=== PATIENT | male | born 1960 | race Caucasian/White ===

== ENCOUNTER 2016-10-13 19:37 | Emergency (ER) | payer MEDICARE ==
[2016-10-13 19:38] VITALS: BMI 25.2
--- NOTE | 2016-10-13 20:09 | C.PDOC ---
History Of Present Illness 55 y/o male brought in by EMS presents to the ED with intoxication. Pt history of orthopedic issues and known substance abuse (pain meds and alcohol). Pt was found lying on the street and unsteady gait when standing up. Pt has no physical complaints at this time. Time Seen by Provider: 10/13/16 20:00 Chief Complaint (Nursing): Substance Abuse History Per: Patient History/Exam Limitations: no limitations Suicide/Self Injury Attempted (Context): None Modifying Factor(s): Alcohol Severity: Mild Involuntary Hold By: None Recent travel outside of the [place]: No Past Medical History Reviewed: Historical Data, Nursing Documentation, Vital Signs Vital Signs: Last Vital Signs Temp 97.8 F 10/13/16 19:48 Pulse 92 H 10/13/16 22:00 Resp 19 10/13/16 22:00 BP 116/67 10/13/16 22:00 Pulse Ox 100 10/13/16 23:44 - [facility] Procedures ANESTH INJECT-SPIN CANAL (08/27/02) IMMOBILIZATION OF LEFT UPPER ARM USING SPLINT (02/14/16) INJECT STEROID (08/27/02) INJECT/INFUSE ELECTROLYT (07/09/14) INJECT/INFUSE NEC (03/23/15) SPINAL CANAL INJECT NEC (08/27/02) TETANUS TOXOID ADMINIST (08/01/13) Family History: States: Unknown Family Hx - Social History Hx Alcohol Use: No Hx Substance Use: Yes (pain pills) - Immunization History Hx Tetanus Toxoid Vaccination: Yes Hx Influenza Vaccination: No Hx Pneumococcal Vaccination: No Review Of Systems Review Of Systems: ROS cannot be obtained secondary to pt's inabilty to answer questions. Physical Exam - Physical Exam Appears: Non-toxic, No Acute Distress, Other ( slurred speech, lethargic) Skin: Warm, Dry, No Rash Head: Atraumatic, Normacephalic Eye(s): bilateral: Normal Inspection, PERRL Nose: Normal Neck: Normal ROM, No Trachea Deviated, No Midline Cervical Tenderness, Supple Lymphatic: No Adenopathy Chest: Symmetrical Cardiovascular: Rhythm Regular, No Murmur, No JVD Respiratory: Normal Breath Sounds, No Rales, No Rhonchi, No Wheezing Gastrointestinal/Abdominal: Soft Extremity: No Pedal Edema Extremity: Bilateral: Atraumatic, Normal Color And Temperature Pulses: Left Carotid: Normal, Right Carotid: Normal Neurological/Psych: No Oriented x3, No Normal Speech (s), Normal Reflexes, No Response To Commands Pain Response: Withdraws With Pain Gait: Unable To Assess ED Course And Treatment - Laboratory Results Result Diagrams: 10/13/16 21:13 10/13/16 21:13 Lab Interpretation: No Acute Changes (mild anemia) O2 Sat by Pulse Oximetry: 100 (on room air) Pulse Ox Interpretation: Normal - CT Scan/US CT head Other Rad Studies (CT/US): Read By Radiologist, Radiology Report Reviewed CT/US Interpretation: EXAM: CT Head Without Intravenous Contrast. CLINICAL HISTORY: 55 years old, male; Signs and symptoms; Altered mental status/memory loss and syncope and. collapse; Additional info: AMS. TECHNIQUE: Axial computed tomography images of the head/brain without intravenous contrast. This CT exam. was performed using one or more of the following dose reduction techniques: automated exposure. control, adjustment of the mA and/or kV according to patient size, and/or use of iterative. reconstruction technique. COMPARISON: No relevant prior studies available. FINDINGS: Brain: There is mild prominence of ventricles and sulci, compatible with mild atrophy. There is mild. diminished density of the white matter bilaterally, consistent with mild microangiopathy. There is no. evidence of intracranial hemorrhage. No evidence of acute territorial infarction. No edema. Ventricles: See above. Bones/joints : There is motion and beam hardening artifact near the skull base which somewhat. limits evaluation. Soft tissues: Unremarkable. Sinuses: Unremarkable as visualized. No acute sinusitis. Mastoid air cells: Unremarkable as visualized. No mastoid effusion. IMPRESSION: 1. There is motion and beam hardening artifact near the skull base which somewhat limits. evaluation. 2. No evidence for acute intracranial abnormality or displaced calvarial fracture. 3. Additional incidental and/or chronic findings as described. Thank you for allowing us to participate in the care of your patient. Dictated and Authenticated by: Chon Herrera MD. 10/13/2016 11: 25 PM Eastern Time ([place] & [place]) Progress Note: Patient became agitated enroute to CT. Ativan 1mg IV ordered to allow testing. Reevaluation Time: 00:02 Reassessment Condition: Unchanged (Patient remains lethargic) - Physician Consult Information Time Consulting Physician Contacted: 00:03 Physician Contacted: French Michelle Outcome Of Conversation: Patient with history of known substance abuse presents lethargic but with drug and alcohol screens negative will be admitted for altered mental status. Medical Decision Making Medical Decision Making: Plan: labs, UA Disposition - Disposition Disposition: HOSPITALIZED Disposition Time: 00:05 Condition: FAIR - POA Present On Arrival: None - Clinical Impression Clinical Impression: Altered mental status - Scribe Statement The provider has reviewed the documentation as recorded by the Frank Robert Provider Attestation: All medical record entries made by the Frank were at my direction and personally dictated by me. I have reviewed the chart and agree that the record accurately reflects my personal performance of the history, physical exam, medical decision making, and the department course for this patient. I have also personally directed, reviewed, and agree with the discharge instructions and disposition.
[2016-10-13 21:20] LABS: BASO % 0.5 % (0.0-2.0); EOS # 0.1 K/uL (0.0-0.7); EOS % 0.7 % (0.0-4.0); LYMPH # 2.3 K/uL (1.0-4.3); LYMPH % 29.7 % (20.0-40.0); MEAN CORPUSCULAR HEMOGLOBIN 16.9 pg (27.0-31.0); MEAN CORPUSCULAR HGB CONC 29.1 g/dL (33.0-37.0); MONO # 0.5 K/uL (0.0-0.8); MONO % 6.6 % (0.0-10.0); NRBC % 0.1 % (0.0-2.0); RED CELL DISTRIBUTION WIDTH 23.2 % (11.5-14.5); WHITE BLOOD COUNT 7.7 K/uL (4.8-10.8)
[2016-10-13 21:23] LABS: RBC URINE < 1 /hpf (0-3); URINE BILIRUBIN NEGATIVE (NEGATIVE); URINE BLOOD NEGATIVE (NEGATIVE); URINE COLOR Yellow (YELLOW); URINE GLUCOSE (UA) NORMAL (Normal); URINE KETONE NEGATIVE (NEGATIVE); URINE LEUKOCYTE ESTERASE NEG Leu/uL (Negative); URINE PROTEIN NEGATIVE (NEGATIVE); URINE UROBILINOGEN NORMAL mg/dL (0.2-1.0); WBC URINE < 1 /hpf (0-5)
[2016-10-13 21:26] LABS: CHLORIDE 97 mmol/L (98-107)
[2016-10-13 21:27] LABS: POTASSIUM 4.2 mmol/L (3.6-5.2); SODIUM 135 mmol/L (132-148)
[2016-10-13 21:29] LABS: ALB/GLOB RATIO 1.3 (1.0-2.1); ALKALINE PHOSPHATASE 82 U/L (38-126); AST/SGOT 26 U/L (17-59); BILIRUBIN,TOTAL 0.8 mg/dL (0.2-1.3); BLOOD UREA NITROGEN 15 mg/dL (9-20); CARBON DIOXIDE 22 mmol/L (22-30); GFR AFRICAN-AMERICAN > 60; TOTAL PROTEIN 7.6 g/dL (6.3-8.3)
[2016-10-13 21:30] LABS: ALCOHOL SERUM < 10 mg/dl (0-10); ALT/SGPT 22 U/L (21-72); CALCIUM 9.3 mg/dl (8.6-10.4); GLUCOSE,RANDOM 85 mg/dL (75-110)
[2016-10-13 21:59] LABS: HEMATOCRIT 30.9 % (35.0-51.0)
--- NOTE | 2016-10-13 23:26 | CT ---
EXAM: CT Head Without Intravenous Contrast. CLINICAL HISTORY: 55 years old, male; Signs and symptoms; Altered mental status/memory loss and syncope and collapse; Additional info: AMS TECHNIQUE: Axial computed tomography images of the head/brain without intravenous contrast. This CT exam was performed using one or more of the following dose reduction techniques: automated exposure control, adjustment of the mA and/or kV according to patient size, and/or use of iterative reconstruction technique. COMPARISON: No relevant prior studies available. FINDINGS: Brain: There is mild prominence of ventricles and sulci, compatible with mild atrophy. There is mild diminished density of the white matter bilaterally, consistent with mild microangiopathy. There is no evidence of intracranial hemorrhage. No evidence of acute territorial infarction. No edema. Ventricles: See above. Bones/joints: There is motion and beam hardening artifact near the skull base which somewhat limits evaluation. Soft tissues: Unremarkable. Sinuses: Unremarkable as visualized. No acute sinusitis. Mastoid air cells: Unremarkable as visualized. No mastoid effusion. IMPRESSION: 1. There is motion and beam hardening artifact near the skull base which somewhat limits evaluation. 2. No evidence for acute intracranial abnormality or displaced calvarial fracture. 3. Additional incidental and/or chronic findings as described.
--- NOTE | 2016-10-14 01:55 | CP.PCM.HP ---
<Andreina Rodriguez - Last Filed: 10/14/16 06:08> History of Present Illness - History of Present Illness History of Present Illness: CC: brought in by EMS for AMS. 55 year old male with history of alcohol and drug abuse was brought in by EMS after being found lying in the street. As per chart, patient was witnessed to have unsteady gait once he was up off the floor. As per nursing, patient was noted to be difficult to arouse on arrival to the ED. Later on, he was given 2 doses of Ativan for wanting to get out of bed. On my evaluation, patient was more arousable, but still a poor historian. He admits to some headache, but no chest pain, palpitations or shortness of breath. He admits to smoking 1 ppd, but denies alcohol or illicit drug use today. When asked how he ended up on the ground, he did not answer and just went back to sleep. Patient speaks in full sentences, but is in and out of sleep. PMHx: Hx of alcohol and drug abuse. Meds: none NKDA Surgery Hx: denies Social Hx: admits to 1 ppd, denies using alcohol or drugs. No further history obtainable due to patient's sleepiness. Present on Admission - Present on Admission Any Indicators Present on Admission: No Review of Systems - Review of Systems Systems not reviewed;Unavailable: Altered Mental Status - Cardiovascular Cardiovascular: absent: Chest Pain - Neurological Neurological: Headaches Past Patient History - Infectious Disease Hx of Infectious Diseases: None - Tetanus Immunizations Tetanus Immunization: Unknown - Past Medical History & Family History Past Medical History?: Yes - Past Social History Smoking Status: Heavy Smoker > 10 Cigarettes Daily - CARDIAC Hx Cardiac Disorders: No Hx Hypertension: No - PULMONARY Hx Tuberculosis: No - NEUROLOGICAL HX Cerebrovascular Accident: No - RENAL Hx Chronic Kidney Disease: No - ENDOCRINE/METABOLIC Hx Endocrine Disorders: No - HEMATOLOGICAL/ONCOLOGICAL Hx Cancer: No - INTEGUMENTARY Hx Dermatological Problems: No - MUSCULOSKELETAL/RHEUMATOLOGICAL Hx Back Pain: Yes Hx Falls: No Other/Comment: R SHOULDER INJ X 2 WEEKS, BACK PAIN SINCE 2006, R KNEE PAIN X 2 MONTHS. - GASTROINTESTINAL Hx Gastrointestinal Disorders: No - GENITOURINARY/GYNECOLOGICAL Hx Sexually Transmitted Disorders: No - PSYCHIATRIC Hx Substance Use: Yes (pain pills) - SURGICAL HISTORY Hx Orthopedic Surgery: Yes (back x 2) - ANESTHESIA Hx Anesthesia: Yes Hx Anesthesia Reactions: No Hx Malignant Hyperthermia: No Meds Allergies/Adverse Reactions: Allergies Allergy/AdvReac Type Severity Reaction Status Date / Time No Known Allergies Allergy Verified 05/08/16 09:17 Physical Exam - Constitutional Appears: No Acute Distress, Other (sleepy) - Head Exam Head Exam: NORMAL INSPECTION, NORMOCEPHALIC - Eye Exam Eye Exam: EOMI, Normal appearance, PERRL Pupil Exam: NORMAL ACCOMODATION - ENT Exam ENT Exam: Mucous Membranes Moist - Respiratory Exam Respiratory Exam: Clear to Auscultation Bilateral, NORMAL BREATHING PATTERN. absent: Rales, Rhonchi, Wheezes - Cardiovascular Exam Cardiovascular Exam: +S1, +S2. absent: Tachycardia, Systolic Murmur - GI/Abdominal Exam GI & Abdominal Exam: Normal Bowel Sounds, Soft. absent: Tenderness - Extremities Exam Extremities exam: Positive for: full ROM, normal inspection. Negative for: pedal edema - Back Exam Back exam: NORMAL INSPECTION - Neurological Exam Neurological exam: Alert, Oriented x3 - Psychiatric Exam Psychiatric exam: Normal Affect, Normal Mood - Skin Skin Exam: Normal Color, Warm Results - Vital Signs Recent Vital Signs: Last Vital Signs Temp 97.8 F 10/13/16 19:48 Pulse 68 10/14/16 00:23 Resp 13 10/14/16 00:23 BP 118/76 10/14/16 00:23 Pulse Ox 95 10/14/16 00:23 - Labs Result Diagrams: 10/13/16 21:13 10/13/16 21:13 Labs: Laboratory Results - last 24 hr 10/13/16 10/13/16 10/13/16 20:35 21:13 22:06 WBC 7.7 RBC 5.33 Hgb 9.0 L Hct 30.9 L MCV 58.0 L D MCH 16.9 L MCHC 29.1 L RDW 23.2 H Plt Count 293 MPV 9.0 Neut % (Auto) 62.5 Lymph % (Auto) 29.7 [place] % (Auto) 6.6 Eos % (Auto) 0.7 Baso % (Auto) 0.5 Neut # 4.8 Lymph # 2.3 [place] # 0.5 Eos # 0.1 Baso # 0.0 Differential Comment Sodium 135 Potassium 4.2 Chloride 97 L Carbon Dioxide 22 Anion Gap 20 BUN 15 Creatinine 1.0 Est GFR ( Amer) > 60 Est GFR (Non-Af Amer) > 60 POC Glucose (mg/dL) 86 Random Glucose 85 Calcium 9.3 Total Bilirubin 0.8 AST 26 ALT 22 Alkaline Phosphatase 82 Total Protein 7.6 Albumin 4.3 Globulin 3.3 Albumin/Globulin Ratio 1.3 Urine Color Yellow Urine Clarity Clear Urine pH 6.0 Ur Specific [place] 1.004 Urine Protein Negative Urine Glucose (UA) Normal Urine Ketones Negative Urine Blood Negative Urine Nitrate Negative Urine Bilirubin Negative Urine Urobilinogen Normal Ur Leukocyte Esterase Neg Urine WBC (Auto) < 1 Urine RBC (Auto) < 1 Urine Opiates Screen Negative Negative Urine Methadone Screen Negative Negative Ur Barbiturates Screen Negative Negative Ur Phencyclidine Scrn Negative Negative Ur Amphetamines Screen Negative Negative U Benzodiazepines Scrn Negative Negative U Oth Cocaine Metabols Negative Negative U Cannabinoids Screen Negative Negative Alcohol, Quantitative < 10 Assessment & Plan (1) Altered mental status Assessment and Plan: Admit to Tele. Head CT IMPRESSION: 1. There is motion and beam hardening artifact near the skull base which somewhat limits. evaluation. 2. No evidence for acute intracranial abnormality or displaced calvarial fracture. 3. Additional incidental and/or chronic findings as described. EKG on admission shows sinus rhythm with PACs at 97 bpm. Cardio consult placed- Dr. Katz-help appreciated f/u NICK Q6H X3 f/u EKG Q6H f/u Hgb A1C, TSH, FLP. f/u ammonia level Neurochecks PRN Withdrawal assessment PRN Fall risk protocol Status: Acute (2) Abnormal EKG Assessment and Plan: EKG on admission shows sinus rhythm with PACs at 97 bpm. Cardio consult placed- Dr. Katz-vianney appreciated f/u NICK Q6H X3 f/u EKG Q6H f/u Hgb A1C, TSH, FLP. Status: Acute (3) Anemia Assessment and Plan: Hgb 9.0, Hct 30.9 on admission. MCV 50.8. Patient with microcytic anemia. f/u Iron studies f/u stool OB Status: Acute (4) Substance abuse Assessment and Plan: UDS - negative Alcohol quant- negative Status: Acute (5) Prophylactic measure Assessment and Plan: SCDs Heparin 5000 units SC Q12H Protonix 40 mg PO daily Status: Acute <French Michelle - Last Filed: 10/14/16 06:28> Results - Vital Signs Recent Vital Signs: Last Vital Signs Temp 98.1 F 10/14/16 04:19 Pulse 83 10/14/16 04:19 Resp 18 10/14/16 04:19 BP 115/74 10/14/16 04:19 Pulse Ox 97 10/14/16 04:19 - Labs Result Diagrams: 10/13/16 21:13 10/13/16 21:13 Assessment & Plan - Date & Time Date: 10/14/16 (I have seen and examined the patient. I agree with the findings and plan of care as documented by Dr. Rodriguez. Patient with change in mental status. History of substance abuse. CT head negative. Neurochecks. Consider if CIWA necessary. Hold any sedation for now due to somnolence. Tele for abnormal EKG. Cardio consult. For anemia, check stool for blood. Check iron studies. Monitor for acute changes.) Time: 06:26 Attending/Attestation - Attestation I have personally seen and examined this patient.: Yes I have fully participated in the care of the patient.: Yes I have reviewed all pertinent clinical information: Yes
[2016-10-14 06:50] VITALS: BP 134/70; RESP 20
[2016-10-14 07:18] LABS: IRON 32 ug/dL (49-181)
[2016-10-14 07:49] LABS: BASO # 0.1 K/uL (0.0-0.2); EOS # 0.2 K/uL (0.0-0.7); EOS % 2.5 % (0.0-4.0); LYMPH # 1.8 K/uL (1.0-4.3); LYMPH % 28.3 % (20.0-40.0); MEAN CELL VOLUME 57.8 fL (80.0-94.0); MEAN CORPUSCULAR HEMOGLOBIN 16.9 pg (27.0-31.0); MEAN CORPUSCULAR HGB CONC 29.2 g/dL (33.0-37.0); MEAN PLATELET VOLUME 9.1 fL (7.2-11.7); MONO # 0.6 K/uL (0.0-0.8); MONO % 10.1 % (0.0-10.0); RED CELL DISTRIBUTION WIDTH 23.2 % (11.5-14.5); WHITE BLOOD COUNT 6.3 K/uL (4.8-10.8)
[2016-10-14 07:53] LABS: CHLORIDE 101 mmol/L (98-107); SODIUM 139 mmol/L (132-148)
[2016-10-14 07:54] LABS: POTASSIUM 4.2 mmol/L (3.6-5.2)
[2016-10-14 07:56] LABS: ALB/GLOB RATIO 1.4 (1.0-2.1); ALKALINE PHOSPHATASE 77 U/L (38-126); ALT/SGPT 26 U/L (21-72); AST/SGOT 23 U/L (17-59); BILIRUBIN,TOTAL 0.8 mg/dL (0.2-1.3); BLOOD UREA NITROGEN 14 mg/dL (9-20); CARBON DIOXIDE 23 mmol/L (22-30); GFR AFRICAN-AMERICAN > 60; GLUCOSE,RANDOM 87 mg/dL (75-110); TOTAL PROTEIN 7.3 g/dL (6.3-8.3)
[2016-10-14 07:57] LABS: CALCIUM 9.4 mg/dl (8.6-10.4)
[2016-10-14 07:59] LABS: INR 1.2
--- NOTE | 2016-10-14 09:09 | RAD ---
HISTORY: altered mental status COMPARISON: 02/14/2016 FINDINGS: LUNGS: No active pulmonary disease. PLEURA: No significant pleural effusion identified, no pneumothorax apparent. CARDIOVASCULAR: Normal. OSSEOUS STRUCTURES: No significant abnormalities. VISUALIZED UPPER ABDOMEN: Normal. OTHER FINDINGS: None. IMPRESSION: No active disease.
[2016-10-14] MEDS ORDERED: Pantoprazole 40 mg EC Tab PO SCH (10:00)
[2016-10-14 10:04] VITALS: PULSE 69; TEMP 97.2; O2SAT 95
--- NOTE | 2016-10-14 19:28 | CP.PCM.DIS ---
<KristinNuvia V - Last Filed: 10/14/16 20:12> Provider - Provider Date of Admission: 10/14/16 01:38 Attending physician: French Michelle MD Hospital Course - Lab Results Lab Results: Most Recent Lab Values WBC 6.3 K/uL (4.8-10.8) 10/14/16 07:39 RBC 5.36 Mil/uL (4.40-5.90) 10/14/16 07:39 Hgb 9.0 g/dL (12.0-18.0) L 10/14/16 07:39 Hct 31.0 % (35.0-51.0) L 10/14/16 07:39 MCV 57.8 fL (80.0-94.0) L 10/14/16 07:39 MCH 16.9 pg (27.0-31.0) L 10/14/16 07:39 MCHC 29.2 g/dL (33.0-37.0) L 10/14/16 07:39 RDW 23.2 % (11.5-14.5) H 10/14/16 07:39 Plt Count 318 K/uL (130-400) 10/14/16 07:39 MPV 9.1 fL (7.2-11.7) 10/14/16 07:39 Neut % (Auto) 57.1 % (50.0-75.0) 10/14/16 07:39 Lymph % (Auto) 28.3 % (20.0-40.0) 10/14/16 07:39 Morrill % (Auto) 10.1 % (0.0-10.0) H 10/14/16 07:39 Eos % (Auto) 2.5 % (0.0-4.0) 10/14/16 07:39 Baso % (Auto) 2.0 % (0.0-2.0) 10/14/16 07:39 Neut # 3.6 K/uL (1.8-7.0) 10/14/16 07:39 Lymph # 1.8 K/uL (1.0-4.3) 10/14/16 07:39 Morrill # 0.6 K/uL (0.0-0.8) 10/14/16 07:39 Eos # 0.2 K/uL (0.0-0.7) 10/14/16 07:39 Baso # 0.1 K/uL (0.0-0.2) 10/14/16 07:39 Differential Comment 10/13/16 21:13 PT 13.2 SECONDS (9.7-12.2) H 10/14/16 07:39 INR 1.2 10/14/16 07:39 APTT 30 SECONDS (21-34) 10/14/16 07:39 Sodium 139 mmol/L (132-148) 10/14/16 07:39 Potassium 4.2 mmol/L (3.6-5.2) 10/14/16 07:39 Chloride 101 mmol/L (98-107) 10/14/16 07:39 Carbon Dioxide 23 mmol/L (22-30) 10/14/16 07:39 Anion Gap 19 (10-20) 10/14/16 07:39 BUN 14 mg/dL (9-20) 10/14/16 07:39 Creatinine 0.8 MG/DL (0.8-1.5) 10/14/16 07:39 Est GFR ( Amer) > 60 10/14/16 07:39 Est GFR (Non-Af Amer) > 60 10/14/16 07:39 POC Glucose (mg/dL) 86 mg/dL (65-110) 10/13/16 20:35 Random Glucose 87 mg/dL (75-110) 10/14/16 07:39 Hemoglobin A1c 5.3 % (4.2-6.5) 10/14/16 07:11 Calcium 9.4 mg/dl (8.6-10.4) 10/14/16 07:39 Iron 32 ug/dL (49-181) L 10/14/16 06:47 TIBC 415 ug/dL (250-450) 10/14/16 06:47 % Saturation 8 (20-55) L 10/14/16 06:47 Transferrin 362.59 mg/dL (206-381) 10/14/16 06:47 Ferritin 5.4 ng/mL 10/14/16 06:47 Total Bilirubin 0.8 mg/dL (0.2-1.3) 10/14/16 07:39 AST 23 U/L (17-59) 10/14/16 07:39 ALT 26 U/L (21-72) 10/14/16 07:39 Alkaline Phosphatase 77 U/L (38-126) 10/14/16 07:39 Ammonia 10 umol/L (9-33) 10/14/16 07:11 Total Creatine Kinase 55 U/L (55-170) 10/14/16 06:47 CK-MB (Mass) 0.57 ng/mL (0.0-3.38) 10/14/16 06:47 Troponin I, Quant < 0.0120 ng/mL (0.00-0.120) 10/14/16 06:47 Total Protein 7.3 g/dL (6.3-8.3) 10/14/16 07:39 Albumin 4.2 g/dL (3.5-5.0) 10/14/16 07:39 Globulin 3.1 gm/dL (2.2-3.9) 10/14/16 07:39 Albumin/Globulin Ratio 1.4 (1.0-2.1) 10/14/16 07:39 Urine Color Yellow (YELLOW) 10/13/16 21:13 Urine Clarity Clear (Clear) 10/13/16 21:13 Urine pH 6.0 (5.0-8.0) 10/13/16 21:13 Ur Specific [place] 1.004 (1.003-1.030) 10/13/16 21:13 Urine Protein Negative mg/dL (NEGATIVE) 10/13/16 21:13 Urine Glucose (UA) Normal mg/dL (Normal) 10/13/16 21:13 Urine Ketones Negative mg/dL (NEGATIVE) 10/13/16 21:13 Urine Blood Negative (NEGATIVE) 10/13/16 21:13 Urine Nitrate Negative (NEGATIVE) 10/13/16 21:13 Urine Bilirubin Negative (NEGATIVE) 10/13/16 21:13 Urine Urobilinogen Normal mg/dL (0.2-1.0) 10/13/16 21:13 Ur Leukocyte Esterase Neg Gigi/uL (Negative) 10/13/16 21:13 Urine WBC (Auto) < 1 /hpf (0-5) 10/13/16 21:13 Urine RBC (Auto) < 1 /hpf (0-3) 10/13/16 21:13 Urine Opiates Screen Negative (NEGATIVE) 10/13/16 22:06 Urine Methadone Screen Negative (NEGATIVE) 10/13/16 22:06 Ur Barbiturates Screen Negative (NEGATIVE) 10/13/16 22:06 Ur Phencyclidine Scrn Negative (NEGATIVE) 10/13/16 22:06 Ur Amphetamines Screen Negative (NEGATIVE) 10/13/16 22:06 U Benzodiazepines Scrn Negative (NEGATIVE) 10/13/16 22:06 U Oth Cocaine Metabols Negative (NEGATIVE) 10/13/16 22:06 U Cannabinoids Screen Negative (NEGATIVE) 10/13/16 22:06 Alcohol, Quantitative < 10 mg/dl (0-10) 10/13/16 21:13 Discharge Plan - Follow Up Plan Condition: FAIR Disposition: AGAINST MEDICAL ADVICE Attending/Attestation - Attestation I have personally seen and examined this patient.: Yes I have fully participated in the care of the patient.: Yes I have reviewed all pertinent clinical information, including history, physical exam and plan: Yes Notes (Text): Patient seen, examined, and case discussed with day-time resident. Patient informed resident he would like to leave against medical advice while awaiting bed to the medical floor. I came down spoke with patient who is awake, alert, oriented X3, no acute distress, reported he tripped on curb on the street and fell over his right hip. I advised patient he should stay and received xrays of his hip given his fall that he is at risk if it also fractured or associated clot secondary to fracture. Patient notes "he is too busy" and that he spoke with his son to pick him up and he will see his primary doctor. Discussed CT head and chest xray results with the patient. Patient's blood work was resulting at time of AMA. Patient is awake, alert, oriented X3, no acute distress eating breakfast at bedside, understands the risks associated leaving prematurely from the hospital including respiratory, cardiac arrest, and , and wants to leave against medical advice. General: awake, alert, oriented, NAD Heart: S1, S2, regular rate/rhythm Lungs: CTA b/l no wheezing/no rales/no rhonchi Abdomen: soft nontender nondistended+ BS Extremities: no apparent ecchymoses, no observed cyanosis MSK: patient able to passively move lower extremities; right hip area; no observed gross swelling, erythema, or tenderness to palpation over the right hip Primary Diagnoses: 1) Left against medical advice. <Chelly Plaza - Last Filed: 10/16/16 04:25> Provider - Provider Date of Admission: 10/14/16 01:38 Attending physician: French Michelle MD Consults: none Time Spent in preparation of Discharge (in minutes): 35 Hospital Course - Lab Results Lab Results: Most Recent Lab Values WBC 6.3 K/uL (4.8-10.8) 10/14/16 07:39 RBC 5.36 Mil/uL (4.40-5.90) 10/14/16 07:39 Hgb 9.0 g/dL (12.0-18.0) L 10/14/16 07:39 Hct 31.0 % (35.0-51.0) L 10/14/16 07:39 MCV 57.8 fL (80.0-94.0) L 10/14/16 07:39 MCH 16.9 pg (27.0-31.0) L 10/14/16 07:39 MCHC 29.2 g/dL (33.0-37.0) L 10/14/16 07:39 RDW 23.2 % (11.5-14.5) H 10/14/16 07:39 Plt Count 318 K/uL (130-400) 10/14/16 07:39 MPV 9.1 fL (7.2-11.7) 10/14/16 07:39 Neut % (Auto) 57.1 % (50.0-75.0) 10/14/16 07:39 Lymph % (Auto) 28.3 % (20.0-40.0) 10/14/16 07:39 Morrill % (Auto) 10.1 % (0.0-10.0) H 10/14/16 07:39 Eos % (Auto) 2.5 % (0.0-4.0) 10/14/16 07:39 Baso % (Auto) 2.0 % (0.0-2.0) 10/14/16 07:39 Neut # 3.6 K/uL (1.8-7.0) 10/14/16 07:39 Lymph # 1.8 K/uL (1.0-4.3) 10/14/16 07:39 Morrill # 0.6 K/uL (0.0-0.8) 10/14/16 07:39 Eos # 0.2 K/uL (0.0-0.7) 10/14/16 07:39 Baso # 0.1 K/uL (0.0-0.2) 10/14/16 07:39 Differential Comment 10/13/16 21:13 PT 13.2 SECONDS (9.7-12.2) H 10/14/16 07:39 INR 1.2 10/14/16 07:39 APTT 30 SECONDS (21-34) 10/14/16 07:39 Sodium 139 mmol/L (132-148) 10/14/16 07:39 Potassium 4.2 mmol/L (3.6-5.2) 10/14/16 07:39 Chloride 101 mmol/L (98-107) 10/14/16 07:39 Carbon Dioxide 23 mmol/L (22-30) 10/14/16 07:39 Anion Gap 19 (10-20) 10/14/16 07:39 BUN 14 mg/dL (9-20) 10/14/16 07:39 Creatinine 0.8 MG/DL (0.8-1.5) 10/14/16 07:39 Est GFR ( Amer) > 60 10/14/16 07:39 Est GFR (Non-Af Amer) > 60 10/14/16 07:39 POC Glucose (mg/dL) 86 mg/dL (65-110) 10/13/16 20:35 Random Glucose 87 mg/dL (75-110) 10/14/16 07:39 Hemoglobin A1c 5.3 % (4.2-6.5) 10/14/16 07:11 Calcium 9.4 mg/dl (8.6-10.4) 10/14/16 07:39 Iron 32 ug/dL (49-181) L 10/14/16 06:47 TIBC 415 ug/dL (250-450) 10/14/16 06:47 % Saturation 8 (20-55) L 10/14/16 06:47 Transferrin 362.59 mg/dL (206-381) 10/14/16 06:47 Ferritin 5.4 ng/mL 10/14/16 06:47 Total Bilirubin 0.8 mg/dL (0.2-1.3) 10/14/16 07:39 AST 23 U/L (17-59) 10/14/16 07:39 ALT 26 U/L (21-72) 10/14/16 07:39 Alkaline Phosphatase 77 U/L (38-126) 10/14/16 07:39 Ammonia 10 umol/L (9-33) 10/14/16 07:11 Total Creatine Kinase 55 U/L (55-170) 10/14/16 06:47 CK-MB (Mass) 0.57 ng/mL (0.0-3.38) 10/14/16 06:47 Troponin I, Quant < 0.0120 ng/mL (0.00-0.120) 10/14/16 06:47 Total Protein 7.3 g/dL (6.3-8.3) 10/14/16 07:39 Albumin 4.2 g/dL (3.5-5.0) 10/14/16 07:39 Globulin 3.1 gm/dL (2.2-3.9) 10/14/16 07:39 Albumin/Globulin Ratio 1.4 (1.0-2.1) 10/14/16 07:39 Urine Color Yellow (YELLOW) 10/13/16 21:13 Urine Clarity Clear (Clear) 10/13/16 21:13 Urine pH 6.0 (5.0-8.0) 10/13/16 21:13 Ur Specific [place] 1.004 (1.003-1.030) 10/13/16 21:13 Urine Protein Negative mg/dL (NEGATIVE) 10/13/16 21:13 Urine Glucose (UA) Normal mg/dL (Normal) 10/13/16 21:13 Urine Ketones Negative mg/dL (NEGATIVE) 10/13/16 21:13 Urine Blood Negative (NEGATIVE) 10/13/16 21:13 Urine Nitrate Negative (NEGATIVE) 10/13/16 21:13 Urine Bilirubin Negative (NEGATIVE) 10/13/16 21:13 Urine Urobilinogen Normal mg/dL (0.2-1.0) 10/13/16 21:13 Ur Leukocyte Esterase Neg Gigi/uL (Negative) 10/13/16 21:13 Urine WBC (Auto) < 1 /hpf (0-5) 10/13/16 21:13 Urine RBC (Auto) < 1 /hpf (0-3) 10/13/16 21:13 Urine Opiates Screen Negative (NEGATIVE) 10/13/16 22:06 Urine Methadone Screen Negative (NEGATIVE) 10/13/16 22:06 Ur Barbiturates Screen Negative (NEGATIVE) 10/13/16 22:06 Ur Phencyclidine Scrn Negative (NEGATIVE) 10/13/16 22:06 Ur Amphetamines Screen Negative (NEGATIVE) 10/13/16 22:06 U Benzodiazepines Scrn Negative (NEGATIVE) 10/13/16 22:06 U Oth Cocaine Metabols Negative (NEGATIVE) 10/13/16 22:06 U Cannabinoids Screen Negative (NEGATIVE) 10/13/16 22:06 Alcohol, Quantitative < 10 mg/dl (0-10) 10/13/16 21:13 - Hospital Course Hospital Course: On admission: 55 year old male with history of alcohol and drug abuse was brought in by EMS after being found lying in the street. As per chart, patient was witnessed to have unsteady gait once he was up off the floor. As per nursing , patient was noted to be difficult to arouse on arrival to the ED. Later on, he was given 2 doses of Ativan for wanting to get out of bed. On my evaluation, patient was more arousable, but still a poor historian. He admits to some headache, but no chest pain, palpitations or shortness of breath. He admits to smoking 1 ppd, but denies alcohol or illicit drug use today. When asked how he ended up on the ground, he did not answer and just went back to sleep. Patient speaks in full sentences, but is in and out of sleep. During Hospital Stay: Patient was admitted for altered mental status. Labs were within normal limits. UDS and alcohol level were negative. In the morning the patient stated that he he tripped on curb on the street and fell over his right hip. Patient did not want treatment and wanted to sign out AMA. Patient notes "he is too busy" and that he spoke with his son to pick him up and he will see his primary doctor. Patient left against medical advice. He was alert awake and oriented x 3. He was explained his risks of leaving the hospital without medical treatment such as cardiovascular and/or pulmonary collapse, Dts, worsening withdrawal, and even . Despite the explanation he signed out AMA. Form was signed and witnessed by nurse in the ED and placed in the chart. Discharge Exam - Head Exam Head Exam: NORMAL INSPECTION, NORMOCEPHALIC - Eye Exam Eye Exam: EOMI, Normal appearance, PERRL Pupil Exam: NORMAL ACCOMODATION - Respiratory Exam Respiratory Exam: Clear to PA & Lateral, NORMAL BREATHING PATTERN, UNREMARKABLE. absent: Rales, Rhonchi, Wheezes, Respiratory Distress - Cardiovascular Exam Cardiovascular Exam: REGULAR RHYTHM, +S1, +S2 - GI/Abdominal Exam GI & Abdominal Exam: Normal Bowel Sounds, Soft. absent: Distended, Firm, Guarding, Tenderness - Extremities Exam Extremities exam: normal inspection - Back Exam Back exam: NORMAL INSPECTION. absent: CVA tenderness (L), CVA tenderness (R), paraspinal tenderness - Neurological Exam Neurological exam: Alert, CN II-XII Intact, Oriented x3 - Psychiatric Exam Psychiatric exam: Normal Affect, Normal Mood - Skin Skin Exam: Dry, Intact, Normal Color, Warm
--- NOTE | 2016-10-16 06:38 | CARD ---
APPROVED REPORT EKG Measurement Heart [id number] OR 140P77 [id number] <Conclusion> Sinus rhythm with premature atrial complexes with aberrant conduction Prolonged QT Abnormal ECG
--- NOTE | 2016-10-16 06:38 | CARD ---
APPROVED REPORT EKG Measurement Heart [id number] NM 146P71 [id number] <Conclusion> Sinus rhythm with blocked premature atrial complexes Prolonged QT Abnormal ECG
== END 2016-10-14 09:30 | disposition left against medical advice (07) ==
LOC: C.ER 19:37 → C.9E 10-14 01:38 → UNDOADMIN 10-14 01:38 → UNDODISIN 10-14 09:30
DX: R41.82 Altered mental status, unspecified (principal); D64.9 Anemia, unspecified; W01.0XXA Fall on same level from slipping, tripping and stumbling without subsequent striking against object, initial encounter; R26.81 Unsteadiness on feet; F10.20 Alcohol dependence, uncomplicated; F19.10 Other psychoactive substance abuse, uncomplicated; R94.31 Abnormal electrocardiogram [ECG] [EKG]; F17.210 Nicotine dependence, cigarettes, uncomplicated; Y92.480 Sidewalk as the place of occurrence of the external cause
CPT/HCPCS: 70450; 71010; 80053; 80061; 81001; 82140; 82728; 82948; 83010; 83036; 83540; 83735; 84100; 84443; 84466; 84484; 85025; 85610; 85730; 93005; 96372; 96374; 99285; G0480; J1644; J2060

== ENCOUNTER 2016-11-30 21:31 | Emergency (ER) | payer MEDICARE ==
[2016-11-30 21:32] VITALS: BMI 25.1
[2016-11-30] MEDS ORDERED: Sodium Chloride 0.9% 1,000 ML IV ONE (21:48)
--- NOTE | 2016-11-30 21:51 | C.PDOC ---
History Of Present Illness Patient found on the street, arousable to stimuli. No obvious sign of trauma. Moves all extremities Time Seen by Provider: 11/30/16 21:41 Chief Complaint (Nursing): Altered Mental Status History Per: EMS History/Exam Limitations: Clinical Condition, Intoxication Onset/Duration Of Symptoms: Unknown Onset Of Symptoms: Cannot Confirm Onset Current Symptoms Are (Timing): Still Present Usual Baseline: Alert Oriented Use Of Anticoag/Antiplatelets: Unknown Speech Is: Normal Decreased Ability To: Stand Severity: Moderate Pain Scale Rating Of: 4 Recent travel outside of the [facility]: No Additional History Per: EMS Associated Symptoms: denies: Fever, Chills Past Medical History Reviewed: Historical Data, Nursing Documentation, Vital Signs Vital Signs: Last Vital Signs Temp 98.3 F 11/30/16 21:41 Pulse 80 11/30/16 22:38 Resp 18 11/30/16 22:38 BP 98/63 L 11/30/16 22:38 Pulse Ox 98 11/30/16 22:38 - Medical History PMH: Denies: Depression, HTN, Chronic Kidney Disease, Sexually Transmitted Disease - [facility] Procedures ANESTH INJECT-SPIN CANAL (08/27/02) IMMOBILIZATION OF LEFT UPPER ARM USING SPLINT (02/14/16) INJECT STEROID (08/27/02) INJECT/INFUSE ELECTROLYT (07/09/14) INJECT/INFUSE NEC (03/23/15) SPINAL CANAL INJECT NEC (08/27/02) TETANUS TOXOID ADMINIST (08/01/13) Family History: States: No Known Family Hx - Social History Hx Alcohol Use: No Hx Substance Use: Yes (pain pills) - Immunization History Hx Tetanus Toxoid Vaccination: Yes Hx Influenza Vaccination: No Hx Pneumococcal Vaccination: No Review Of Systems Review Of Systems: ROS cannot be obtained secondary to pt's inabilty to answer questions. Physical Exam - Physical Exam Skin: Warm, Dry Head: Atraumatic, Normacephalic Eye(s): bilateral: Normal Inspection Ear(s): Bilateral: Normal Oral Mucosa: Moist Neck: Trachea Midline, Supple Chest: Symmetrical Cardiovascular: Rhythm Regular Respiratory: No Rales, No Rhonchi, No Wheezing Gastrointestinal/Abdominal: Soft, No Tenderness, No Distention Back: Normal Inspection Extremity: Normal ROM Extremity: Bilateral: Atraumatic, Normal Color And Temperature Neurological/Psych: Slow To Respond With Command Gait: Unable To Assess ED Course And Treatment - Laboratory Results Result Diagrams: 11/30/16 21:51 11/30/16 21:51 ECG: Interpreted By Me, Viewed By Me ECG Rhythm: Sinus Rhythm (86), Nonspecific Changes O2 Sat by Pulse Oximetry: 98 Pulse Ox Interpretation: Normal - Radiology CXR: Interpreted by Me, Viewed By Me CXR Interpretation: Yes: Other (unchnaged from ). No: Infiltrates, Fracture, Cardiomegaly Progress Note: blood work, Critical Care Time - Critical Care Note Total Time (in mins): 30 Documented critical care: time excludes all time spent performing seperately billable procedures. Disposition Discussed With Dr.: Diamond Genao Comment: accepted the pt on his service and took over the care at 11:57 PM Doctor Will See Patient In The: Hospital Counseled Patient/Family Regarding: Studies Performed, Diagnosis - Disposition Disposition: HOSPITALIZED Disposition Time: 21:48 Condition: GUARDED - POA Present On Arrival: None - Clinical Impression Clinical Impression: Altered mental status Decision To Admit - Pt Status Changed To: Hospital Disposition Of: Inpatient - Admit Certification Admit to Inpatient:: After my assessment, the patient will require hospitalization for at least two midnights. This is because of the severity of symptoms shown, intensity of services needed, and/or the medical risk in this patient being treated as an outpatient. - InPatient: Physician Admission Certification:: After my assessment, the patient will require hospitalization for at least two midnights. This is because of the severity of symptoms shown, intensity of services needed, and/or the medical risk in this patient being treated as an outpatient. - . Bed Request Type: Telemetry Admitting Physician: Diamond Genao Patient Diagnosis: Altered mental status
[2016-11-30 22:04] LABS: CHLORIDE 102 mmol/L (98-107); POTASSIUM 3.9 mmol/L (3.6-5.2); SODIUM 137 mmol/L (132-148)
[2016-11-30 22:06] LABS: ALB/GLOB RATIO 1.5 (1.0-2.1); ALKALINE PHOSPHATASE 56 U/L (38-126); AST/SGOT 26 U/L (17-59); BILIRUBIN,TOTAL 0.8 mg/dL (0.2-1.3); CARBON DIOXIDE 24 mmol/L (22-30); GFR AFRICAN-AMERICAN > 60; TOTAL PROTEIN 7.7 g/dL (6.3-8.3)
[2016-11-30 22:07] LABS: ALCOHOL SERUM < 10 mg/dl (0-10); ALT/SGPT 30 U/L (21-72); BLOOD UREA NITROGEN 17 mg/dL (9-20); CALCIUM 8.9 mg/dl (8.6-10.4); GLUCOSE,RANDOM 99 mg/dL (75-110)
[2016-11-30 22:34] LABS: BASO # 0.1 K/uL (0.0-0.2); BASO % 1.4 % (0.0-2.0); EOS # 0.1 K/uL (0.0-0.7); EOS % 1.9 % (0.0-4.0); HEMATOCRIT 41.8 % (35.0-51.0); LYMPH # 2.9 K/uL (1.0-4.3); LYMPH % 39.6 % (20.0-40.0); MEAN CORPUSCULAR HEMOGLOBIN 20.7 pg (27.0-31.0); MEAN CORPUSCULAR HGB CONC 31.1 g/dL (33.0-37.0); MEAN PLATELET VOLUME 9.3 fL (7.2-11.7); MONO # 0.6 K/uL (0.0-0.8); MONO % 7.5 % (0.0-10.0); NRBC % 0.2 % (0.0-2.0); WHITE BLOOD COUNT 7.4 K/uL (4.8-10.8)
[2016-11-30 22:35] LABS: RBC URINE 1 /hpf (0-3); URINE BACTERIA RARE (<OCC); URINE BILIRUBIN NEGATIVE (NEGATIVE); URINE BLOOD NEGATIVE (NEGATIVE); URINE COLOR Yellow (YELLOW); URINE GLUCOSE (UA) NORMAL (Normal); URINE KETONE TRACE mg/dL (NEGATIVE); URINE LEUKOCYTE ESTERASE NEG Leu/uL (Negative); URINE PROTEIN NEGATIVE (NEGATIVE); URINE UROBILINOGEN NORMAL mg/dL (0.2-1.0); WBC URINE < 1 /hpf (0-5)
[2016-11-30 22:36] LABS: MEAN CELL VOLUME 66.7 fL (80.0-94.0)
[2016-11-30] MEDS ORDERED: Naloxone 0.4 mg/ml Inj (Adult) IVP ONE (23:17)
[2016-11-30] MEDS ORDERED: Naloxone 0.4 mg/ml Inj (Adult) ONE (23:39)
[2016-12-01 04:36] VITALS: BP 144/95; PULSE 67; RESP 16; TEMP 97.5; O2SAT 95
--- NOTE | 2016-12-01 07:27 | CT ---
PROCEDURE: CT HEAD WITHOUT CONTRAST. HISTORY: Altered mental status COMPARISON: CT head dated 10/13/2016 TECHNIQUE: Axial computed tomography images were obtained through the head/brain without intravenous contrast. Radiation dose: Total exam DLP = 891 mGy-cm. This CT exam was performed using one or more of the following dose reduction techniques: Automated exposure control, adjustment of the mA and/or kV according to patient size, and/or use of iterative reconstruction technique. FINDINGS: HEMORRHAGE: No intracranial hemorrhage. BRAIN: Encephalomalacia present within the inferior frontal lobes bilaterally and in the anterior temporal lobes. This may be related to remote ischemic changes and or posttraumatic changes. Scattered focal lucencies in the subcortical and periventricular white matter suggestive for chronic microvascular ischemic change. Cortical volume loss. Bilateral basal ganglia calcifications. VENTRICLES: Unremarkable. No hydrocephalus. CALVARIUM: Healed defect in the right frontal calvarium. PARANASAL SINUSES: Mild mucosal thickening of the ethmoid air cells. MASTOID AIR CELLS: Unremarkable as visualized. No inflammatory changes. OTHER FINDINGS: None. IMPRESSION: No acute intracranial abnormality. Encephalomalacia present within the inferior frontal lobes bilaterally and in the anterior temporal lobes. This may be related to remote ischemic changes and or posttraumatic changes. Scattered focal lucencies in the subcortical and periventricular white matter suggestive for chronic microvascular ischemic change. Cortical volume loss. Mild mucosal thickening of the ethmoid air cells. If symptoms persists, consider MRI. These findings were preliminarily reported at 11:59 p.m. on 11/30/[address] Abby Marie from [facility].
--- NOTE | 2016-12-01 08:21 | RAD ---
PROCEDURE: CHEST RADIOGRAPH, 1 VIEW HISTORY: Detox/Psy COMPARISON: 10/14/2016 FINDINGS: LUNGS: Mild venous congestion. PLEURA: No pneumothorax or pleural fluid seen. CARDIOVASCULAR: Tortuous ectatic aorta. OSSEOUS STRUCTURES: No significant abnormalities. VISUALIZED UPPER ABDOMEN: Normal. OTHER FINDINGS: None. IMPRESSION: Mild venous congestion.
[2016-12-01] MEDS ORDERED: cefTRIAXone IV 1 gm in Dextros 1 GM in Dextrose 5% In Water 50 ML IVPB SCH (10:00)
[2016-12-01] MEDS ORDERED: Enoxaparin 40 mg Syringe SC SCH (10:00)
[2016-12-01] MEDS ORDERED: Pantoprazole 40 mg EC Tab PO SCH (10:00)
--- NOTE | 2016-12-02 00:23 | CARD ---
APPROVED REPORT EKG Measurement Heart [id number] [id number] <Conclusion> Normal sinus rhythm Possible Left atrial enlargement Nonspecific T wave abnormality Prolonged QT Abnormal ECG
== END 2016-12-01 04:00 | disposition left against medical advice (07) ==
LOC: C.ER 21:31 → UNDOADMIN 23:57 → C.9E 23:57 → C.6T 12-01 00:30 → C.9E 12-01 00:30 → C.ER 12-01 04:00 → UNDODISIN 12-01 04:00
DX: R41.82 Altered mental status, unspecified (principal); I12.9 Hypertensive chronic kidney disease with stage 1 through stage 4 chronic kidney disease, or unspecified chronic kidney disease; F10.120 Alcohol abuse with intoxication, uncomplicated; F32.9 Major depressive disorder, single episode, unspecified; N18.9 Chronic kidney disease, unspecified
CPT/HCPCS: 70450; 71010; 80053; 81001; 85025; 93005; 96374; 99285; G0480; J2310; J7040

== ENCOUNTER 2018-07-07 22:44 | Emergency (ER) | payer MEDICARE ==
[2018-07-07 22:46] VITALS: BMI 29.2
[2018-07-08 00:49] VITALS: BP 110/70; PULSE 80; RESP 14; TEMP 97.2; O2SAT 97
--- NOTE | 2018-07-08 02:36 | C.PDOC ---
History Of Present Illness 57 y/o male pt brought to the ER by EMS for public intoxication. Pt denies trauma and has no other complaints at this time. Time Seen by Provider: 07/07/18 23:00 Chief Complaint (Nursing): Substance Abuse History Per: Patient History/Exam Limitations: no limitations Onset/Duration Of Symptoms: Hrs Current Symptoms Are (Timing): Still Present Modifying Factor(s): Alcohol Past Medical History Reviewed: Historical Data, Nursing Documentation, Vital Signs Vital Signs: Last Vital Signs Temp 97.2 F L 07/08/18 00:48 Pulse 80 07/08/18 00:48 Resp 14 07/08/18 00:48 BP 110/70 07/08/18 00:48 Pulse Ox 97 07/08/18 00:48 - Medical History PMH: Surgical History: Back Surgery - [facility] Procedures ANESTH INJECT-SPIN CANAL (08/27/02) IMMOBILIZATION OF LEFT UPPER ARM USING SPLINT (02/14/16) INJECT STEROID (08/27/02) INJECT/INFUSE ELECTROLYT (07/09/14) INJECT/INFUSE NEC (03/23/15) SPINAL CANAL INJECT NEC (08/27/02) TETANUS TOXOID ADMINIST (08/01/13) Family History: States: Unknown Family Hx - Social History Hx Alcohol Use: Yes Hx Substance Use: No (denies) - Immunization History Hx Tetanus Toxoid Vaccination: Yes Hx Influenza Vaccination: No Hx Pneumococcal Vaccination: No Review Of Systems Except As Marked, All Systems Reviewed And Found Negative. Constitutional: Negative for: Fever, Chills Cardiovascular: Negative for: Chest Pain Respiratory: Negative for: Cough Gastrointestinal: Negative for: Nausea, Vomiting Genitourinary: Negative for: Dysuria Musculoskeletal: Negative for: Neck Pain, Back Pain Skin: Negative for: Bruising Psych: Negative for: Suicidal ideation, Other ([place]) Physical Exam - Physical Exam Appears: Non-toxic, No Acute Distress Skin: Warm, Dry Head: Normacephalic Eye(s): bilateral: Normal Inspection, EOMI Throat: Normal Neck: Normal ROM, Supple Chest: Symmetrical Cardiovascular: Rhythm Regular Respiratory: Normal Breath Sounds Gastrointestinal/Abdominal: Soft, No Tenderness Neurological/Psych: Oriented x3, Normal Speech ED Course And Treatment O2 Sat by Pulse Oximetry: 97 (RA) Pulse Ox Interpretation: Normal Medical Decision Making Medical Decision Making: Impression: public intoxication Reassess: At this time the patient is ambulatory with steady gait, and is clinically sober. Observation discharge care of the patient included a discussion of outpatient management including available detox programs, instructions for continuing care and preparation of the discharge records. Patient is stable for discharge and outpatient therapy and follow-up. Disposition - Disposition Referrals: [facility] [Outside] [facility] [Outside] Disposition: HOME/ ROUTINE Disposition Time: 23:30 Condition: IMPROVED Additional Instructions: MARCO VALENTE, thank you for letting us take care of you today. The emergency m edical care you received today was directed at your acute symptoms. If you were prescribed any medication, please fill it and take as directed. It may take several days for your symptoms to resolve. Return to the Emergency Department if your symptoms worsen, do not improve, or if you have any other problems. Please contact your doctor or call one of the physicians/clinics you have been referred to that are listed on the Patient Visit Information form that is included in your discharge packet. Bring any paperwork you were given at discharge with you along with any medications you are taking to your follow up visit. Our treatment cannot replace ongoing medical care by a primary care provider outside of the emergency department. Thank you for allowing the [facility] team to be part of your care today. Do not drink too much alcohol at one time. Follow up with your primary care doctor or our clinic this week for outpatient care. Instructions: Alcohol Abuse and Alcoholism (DC) Forms: [employer] (Mozambican) - Clinical Impression Clinical Impression: Alcohol abuse - Scribe Statement The provider has reviewed the documentation as recorded by the Frank Valle Do Provider Attestation: All medical record entries made by the Frank were at my direction and personally dictated by me. I have reviewed the chart and agree that the record accurately reflects my personal performance of the history, physical exam, medical decision making, and the department course for this patient. I have also personally directed, reviewed, and agree with the discharge instructions and disposition.
== END 2018-07-08 00:49 | disposition home or self-care (01) ==
LOC: C.ER 22:44
DX: F10.10 Alcohol abuse, uncomplicated (principal); Y90.9 Presence of alcohol in blood, level not specified

== ENCOUNTER 2018-07-08 01:27 | Emergency (ER) | payer MEDICARE ==
[2018-07-08 01:27] VITALS: BMI 29.2
== END 2018-07-08 01:44 | disposition left against medical advice (07) ==
LOC: C.ER 01:27
DX: Z02.89 Encounter for other administrative examinations (principal); F19.10 Other psychoactive substance abuse, uncomplicated

== ENCOUNTER 2018-08-30 16:15 | Emergency (ER) | payer MEDICARE ==
[2018-08-30 16:15] VITALS: BMI 29.2
--- NOTE | 2018-08-30 17:41 | C.PDOC ---
History Of Present Illness 57 year old male is brought to the ED by EMS for evaluation of acute alcohol intoxication. Patient was intoxicated inside a [employer], prompting the manager exchange to call 911. Patient admits to drinking earlier today and offers no complaints at this time. Time Seen by Provider: 08/30/18 16:51 Chief Complaint (Nursing): Substance Abuse History Per: Patient, EMS History/Exam Limitations: intoxication Onset/Duration Of Symptoms: Hrs Current Symptoms Are (Timing): Still Present Suicide/Self Injury Attempted (Context): None Modifying Factor(s): Alcohol Associated Symptoms: denies: Suicidal Thoughts, Suicidal Plan Involuntary Hold By: None Recent travel outside of the [place]: No Additional History Per: Patient, EMS Past Medical History Reviewed: Historical Data, Nursing Documentation, Vital Signs Vital Signs: Last Vital Signs Temp 98.4 F 08/30/18 16:23 Pulse 106 H 08/30/18 16:23 Resp 16 08/30/18 16:23 BP 124/82 08/30/18 16:23 Pulse Ox 95 08/30/18 16:23 - Medical History PMH: No Chronic Diseases Denies: Depression, HTN, Chronic Kidney Disease, Sexually Transmitted Disease Surgical History: Back Surgery - [facility] Procedures ANESTH INJECT-SPIN CANAL (08/27/02) IMMOBILIZATION OF LEFT UPPER ARM USING SPLINT (02/14/16) INJECT STEROID (08/27/02) INJECT/INFUSE ELECTROLYT (07/09/14) INJECT/INFUSE NEC (03/23/15) SPINAL CANAL INJECT NEC (08/27/02) TETANUS TOXOID ADMINIST (08/01/13) Family History: States: Unknown Family Hx - Social History Hx Alcohol Use: Yes Hx Substance Use: No (denies) - Immunization History Hx Tetanus Toxoid Vaccination: Yes Hx Influenza Vaccination: No Hx Pneumococcal Vaccination: No Review Of Systems Psych: Positive for: Other (EtOH intoxication ) Physical Exam - Physical Exam Appears: Non-toxic, Other (visibly intoxicated) Skin: Normal Color, Warm, Dry Head: Atraumatic, Normacephalic Eye(s): bilateral: Normal Inspection Oral Mucosa: Moist, Other (alcohol on breath ) Neck: Supple Chest: Symmetrical, No Deformity, No Tenderness Cardiovascular: Rhythm Regular, No Murmur Respiratory: Normal Breath Sounds, No Rales, No Rhonchi, No Wheezing Extremity: Normal ROM, Capillary Refill (less than 2 seconds ) Neurological/Psych: Other (arousable to touch and verbal stimuli ) ED Course And Treatment O2 Sat by Pulse Oximetry: 95 (on RA ) Pulse Ox Interpretation: Normal Reevaluation Time: 00:18 Reassessment Condition: Unchanged (Patient continues to sleep quietly on the stretcher.) Disposition - Disposition Disposition Time: 00:19 Condition: STABLE Forms: [facility] (Portuguese) - Clinical Impression Clinical Impression: Alcohol intoxication - Scribe Statement The provider has reviewed the documentation as recorded by the Scribe (Ebnoie Genao) Provider Attestation: All medical record entries made by the Scribe were at my direction and personally dictated by me. I have reviewed the chart and agree that the record accurately reflects my personal performance of the history, physical exam, medical decision making, and the department course for this patient. I have also personally directed, reviewed, and agree with the discharge instructions and disposition. Physician Patient Turnover Patient Signed Over To: Jeff Garcia Handoff Comments: pending sobriety
[2018-08-31 00:38] VITALS: RESP 20
[2018-08-31 05:35] VITALS: BP 133/90; PULSE 90; TEMP 97.8; O2SAT 95
== END 2018-08-31 05:49 | disposition home or self-care (01) ==
LOC: C.ER 16:15
DX: F10.129 Alcohol abuse with intoxication, unspecified (principal); Y90.9 Presence of alcohol in blood, level not specified